=== PATIENT | female | born 1945 | race Caucasian/White ===

== ENCOUNTER 2019-06-14 08:48 | Emergency (ER) | payer MEDICARE ==
[~2019-06-14] VITALS: Ht 154.9 cm; Wt 82.9 kg
[~2019-06-14 08:48] MED LIST: AMLO10TA8 PO; ASPI-515 PO; BUME1TAB21 PO; DULO30CA2 PO; DULO60CA7 PO; GABA-826 PO; GABA300C10 PO; HYDR-3245 PO; HYDR-36 PO; HYDR25TA6 PO; INSU100C SQ-INSULIN; INSU300I HOMEINJ; LISI5TAB7 PO; MORP30TA81 PO; MORP60TA34 PO; POTA20TA89 PO; TRAZ50TA66 PO
[2019-06-14] MEDS ORDERED: ONDANSETRON 2MG/ML, 2ML ONE (09:25)
[2019-06-14] MEDS ORDERED: MORPHINE SULFATE 4 MG/ML, 1ML ONE (09:25)
[2019-06-14] MEDS ORDERED: MORPHINE SULFATE 4 MG/ML, 1ML IVPush PRN (09:30)
--- NOTE | 2019-06-14 09:38 | NUR ---
Piv placed from which labs including 1 set of blood cultures drawn, then medicated per emar for pain to right breast at 10/19. Also medicated with 1l NS & zofran for nausea. Lab at bedside to drawn 2nd set of cultures Ultrasound/cxr at bedside at 0945
[2019-06-14 09:52] LABS: BASOPHILS # (AUTO) 0.02 x10^3/uL (0-0.1); BASOPHILS % (AUTO) 0 % (0-1); EOSINOPHILS # (AUTO) 0.29 x10^3/uL (0-0.4); EOSINOPHILS % (AUTO) 4 % (1-7); LYMPHOCYTES # (AUTO) 1.38 x10^3/uL (1-3.4); LYMPHOCYTES % (AUTO) 17 % (22-44); MD NO; MEAN CORPUSCULAR HGB CONC 33.5 g/dL (32.4-35.8); MEAN CORPUSCULAR VOLUME 83.7 fL (80-100); MEAN PLATELET VOLUME 6.7 fL (7.4-10.4); MONOCYTES % (AUTO) 6 % (2-9); NEUTROPHILS # (AUTO) 5.84 x10^3/uL (1.8-6.8); NEUTROPHILS % (AUTO) 73 % (42-75); PLATELET COUNT 306 x10^3/uL (130-400); RED CELL DISTRIBUTION WIDTH 14.5 % (9.6-15.2)
[2019-06-14] MEDS ORDERED: SODIUM CHLORIDE 0.9% 1,000ML IVBOLUS ONE (10:00)
[2019-06-14] MEDS ORDERED: ONDANSETRON 2MG/ML, 2ML IVPush ONE (10:00)
[2019-06-14 10:04] LABS: ALBUMIN 3.6 g/dL (3.4-5.0); ANION GAP 8 mmol/L (5-15); CALCIUM 9.3 mg/dL (8.5-10.1); CHLORIDE 107 mmol/L (98-107); CREATININE 0.93 mg/dL (0.55-1.02)
--- NOTE | 2019-06-14 10:04 | NUR ---
task RN note: pt's spo2 90% on room air, oxygen applied via NC at 2L/min. pt a&o, resps even and unlabored. US completed. pt reports pain improved s/p morphine. pt a&o, resps even and unlabored. pt is sinus tach rate 90's with no ectopy on section cutter. EDMD Kareem at bedside to update pt with POC.
[2019-06-14 10:07] LABS: TROPONIN I < 0.015 ng/mL (0.000-0.045)
--- NOTE | 2019-06-14 10:49 | NUR ---
PAIN CONTROLLED TO 2/10 POST MEDICATION VSS ON DIRECTOR FRANCHISE SALES (HR REMAINS 110-115) 1LNS BOLUS COMPLETE PATIENT UPDATED ON POC BY PROVIDER: TO TX PNA WITH ABX AND CONSULT PLASTIC FOR SEROMA
[2019-06-14] MEDS ORDERED: AZITHROMYCIN 500 MG in SODIUM CHLORIDE 0.9% 250 ML IV ONE (11:00)
[2019-06-14] MEDS ORDERED: CEFTRIAXONE PMX 1GM/50ML 50 ML IV ONE (11:00)
[2019-06-14] MEDS ORDERED: CEFTRIAXONE PMX 1GM/50ML 50 ML ONE (11:17)
--- NOTE | 2019-06-14 12:10 | NUR ---
PIV INFILTRATED, REMOVED AND REPLACED WITH NEW PIV-AZITHROMYCIN 50% COMPLETE
[2019-06-14 13:02] VITALS: BP 123/78
== END 2019-06-14 13:04 | disposition home or self-care (01) ==
LOC: ED 09:03
DX: G89.29 Other chronic pain (principal); N61.0 Mastitis without abscess; J15.9 Unspecified bacterial pneumonia; R00.0 Tachycardia, unspecified; R07.89 Other chest pain; I10 Essential (primary) hypertension; E11.9 Type 2 diabetes mellitus without complications; Z86.73 Personal history of transient ischemic attack (TIA), and cerebral infarction without residual deficits; Z87.891 Personal history of nicotine dependence
CPT/HCPCS: 36415; 71045; 76642; 80048; 82040; 83605; 83880; 84145; 84484; 85025; 87040; 93005; 96365; 96375; 99285; J0456; J0696; J2270; J2405; J7030; J7050